=== PATIENT | male | born 1965 | race Caucasian/White ===

== ENCOUNTER 2022-03-18 10:24 | Outpatient (CLI) | payer OTHER, SELFPAY ==
[2022-03-18 13:56] LABS: Chloride* 104 mmol/L (96-114)
[2022-03-18 13:57] LABS: Potassium* 4.4 mmol/L (3.6-5.1); Sodium* 137 mmol/L (135-149)
[2022-03-18 13:59] LABS: Aspartate Amino Transferase* 230 U/L (12-35); Bilirubin Total* 1.1 mg/dL (0.1-1.5); Blood Urea Nitrogen* 10 mg/dL (7-30); Carbon Dioxide* 26 mmol/L (20-32); Cholesterol* 259 mg/dL (90-199); Creatinine* 0.7 mg/dL (0.5-1.5); Estimated Glomerular Filt Rate 110 ml/min; Total Protein* 7.1 g/dL (6.0-8.3)
[2022-03-18 14:00] LABS: Alanine Aminotransferase* 205 U/L (4-50); Alkaline Phosphatase* 122 U/L (40-150); Calcium* 9.1 mg/dL (8.4-10.6); Glucose* 94 mg/dL (60-115); HDL Cholesterol* 50 mg/dL (>=40); Triglycerides* 165 mg/dL (40-149)
[2022-03-18 14:30] LABS: PSA Screen* 0.49 ng/mL (0.10-4.00)
[2022-03-18 15:34] LABS: LDL Cholesterol Calculated 176 mg/dL (<100)
== END 2022-03-18 10:25 | disposition home or self-care (01) ==
LOC: LKVREF 10:24
PROVIDERS: PCP Emergency Medicine; Visit Provider Emergency Medicine
DX: Z00.00 Encounter for general adult medical examination without abnormal findings (principal); E03.9 Hypothyroidism, unspecified; E78.00 Pure hypercholesterolemia, unspecified; I10 Essential (primary) hypertension; F10.10 Alcohol abuse, uncomplicated; Z12.5 Encounter for screening for malignant neoplasm of prostate
CPT/HCPCS: 80053; 80061; 84153; 84443

== ENCOUNTER 2022-11-20 08:02 | Outpatient (CLI) | payer OTHER, SELFPAY ==
[2022-11-20 17:18] LABS: Lab Add On Test New Spec Needed
== END 2022-11-20 08:03 | disposition home or self-care (01) ==
LOC: LKVREF 16:49
PROVIDERS: PCP Emergency Medicine; Referring Provider Emergency Medicine; Visit Provider Emergency Medicine
DX: R74.01 Elevation of levels of liver transaminase levels (principal); E78.00 Pure hypercholesterolemia, unspecified; D75.89 Other specified diseases of blood and blood-forming organs; I10 Essential (primary) hypertension; E53.8 Deficiency of other specified B group vitamins
CPT/HCPCS: 80048; 80061; 80076; 82607

== ENCOUNTER 2023-05-20 07:58 | Outpatient (CLI) | payer OTHER, SELFPAY | END 2023-05-20 07:59 | disposition home or self-care (01) | LOC: NFLDREF 05-22 14:41 | PROVIDERS: PCP Emergency Medicine; Referring Provider Emergency Medicine; Visit Provider Emergency Medicine | DX: E78.00 Pure hypercholesterolemia, unspecified (principal); E53.8 Deficiency of other specified B group vitamins; D75.89 Other specified diseases of blood and blood-forming organs | CPT/HCPCS: 80061; 82607 ==

== ENCOUNTER 2023-06-03 13:55 | Outpatient (CLI) | payer OTHER, SELFPAY | END 2023-06-03 13:56 | disposition home or self-care (01) | PROVIDERS: PCP Emergency Medicine; Visit Provider Emergency Medicine | DX: N52.9 Male erectile dysfunction, unspecified (principal); R68.82 Decreased libido | CPT/HCPCS: 84403 ==

== ENCOUNTER 2023-07-09 14:28 | Outpatient (CLI) | payer OTHER, SELFPAY | END 2023-07-09 14:29 | disposition home or self-care (01) | LOC: LKVREF 14:29 | PROVIDERS: PCP Emergency Medicine; Visit Provider Emergency Medicine | DX: Z01.818 Encounter for other preprocedural examination (principal); R68.82 Decreased libido; E53.8 Deficiency of other specified B group vitamins | CPT/HCPCS: 80048; 82607 ==

== ENCOUNTER 2023-07-16 06:07 | Day surgery (SDC) | payer OTHER, SELFPAY ==
[2023-07-16] VITALS (11 sets, daily range): BP systolic 131–186; BP diastolic 82–119; PULSE 55–79; RESP 12–20; TEMP 36.2–36.8; O2SAT 97–100; BMI 24.1
[2023-07-16] MEDS: LACTATED RINGERS 1000 ML 1,000 ML 100 ML IV (06:20)
[2023-07-16] MEDS: SODIUM CHLORIDE 0.9 % (FLUSH) 10 ML SYRINGE IVF (06:56)
[2023-07-16] MEDS: CEFAZOLIN 1 GM inj IVP (11:08)
[2023-07-16] MEDS: BUPIVACAINE 0.25% 30 ML INJECTION (11:38)
--- NOTE | 2023-07-16 11:45 | SUR.OPER ---
PATIENT QUESTIONS ANSWERED SATISFACTORILY PREOPERATIVELY. PATIENT BROUGHT TO OR #1 PER CART. Patient positioned supine on OR #1 bed. The perioperative team supported arms bilaterally on arm boards. Final approval of positioning by surgeon.
--- NOTE | 2023-07-16 12:04 | PM.GSPRC ---
Operative Note Pre-op diagnosis: Right inguinal hernia Post-op diagnosis: Same Type of Procedure: Laparoscopic repair of right inguinal hernia with mesh Indications: The patient is a 57-year-old male who noted a right groin bulge. Exam revealed a right inguinal hernia This has become increasingly symptomatic for him and after discussion of options, he would like repair. Procedure Description: After discussing the risks and benefits of the procedure, the patient signed informed consent.? The operative site was marked and the patient was brought to the operating room and placed on the operating table in supine position.? Care was taken to pad the patient's pressure points.?? The patient was then intubated by anesthesia.?? The operative site was then prepped and draped in the usual sterile fashion.? A time-out was then performed. A curvilinear incision was made below the umbilicus. Dissection was carried down to subcutaneous tissue until the anterior rectus fascia was encountered. This was incised off the midline on the right. The rectus muscle fibers were then retracted exposing the posterior fascia. A port with a dissecting balloon was then introduced into the pre-preperitoneal space. This was inflated under direct vision. The balloon was deflated, removed, and a 10 mm working port was placed. The space was insufflated and a 10 mm 30-degree scope was then advanced into the space. Two 5 mm ports were placed in the midline under direct vision. Dissection began on the right side. Clive's ligament and the pubic bone were exposed medially. Following this, dissection was carried out laterally. A small direct as well as an indirect defect were noted. The direct hernia was reduced and then attention was turned to the indirect sac. This was dissected free from the cord structures using a combination of sharp and blunt dissection. A large cord lipoma was also reduced. Once the sac was completely reduced, a piece of Bard 3DMax mesh for the appropriate side was placed into the abdomen. This was positioned with the marker pointed medially. A Tacker was used to attach the mesh medially at Clive's ligament and 1 tack laterally with care to avoid the epigastric vessels and stay above the inguinal ligament. Once this was completed the sac was placed on top of the mesh and the preperitoneal space desufflated under direct vision to ensure the mesh laid flat. 10 mL of 0.5% Marcaine were instilled into the preperitoneal space through a port. The ports were removed. The fascia from the infraumbilical port was closed with 0 Vicryl. The skin incisions were closed with absorbable subcuticular suture. Sterile dressings were then applied. The scrotum was examined to ensure that both testicles were down. Instrument sponge and needle counts were correct at the end of the case. The patient was then woken and transported to the recovery area in stable condition. ? The patient tolerated the procedure well. Findings: Small direct and indirect inguinal hernias with a large cord lipoma. Implants: Bard 3DMax inguinal hernia mesh Anesthesia: GETA Surgeon: Bozena Rose MD Estimated blood loss (mL): 5 Condition: stable Disposition: PACU Date of procedure: 07/16/23
--- NOTE | 2023-07-16 12:21 | W.ANESCHARGE ---
Anesthesia Charges Start Date/Time Anesthesia Start Date: 07/16/23 Anesthesia Start Time: 10:50 Stop Date/Time Anesthesia Stop Date: 07/16/23 Anesthesia Stop Time: 12:15
== END 2023-07-16 13:36 | disposition home or self-care (01) ==
PROVIDERS: PCP Emergency Medicine; Visit Provider Surgery
PROC: (CPT 49650; principal; 2023-07-16 08:45)
DX: K40.90 Unilateral inguinal hernia, without obstruction or gangrene, not specified as recurrent (principal)
CPT/HCPCS: 49650; 00830; C1781; J0330; J0665; J0690; J2250; J2704; J3010; J3490; J7120

== ENCOUNTER 2024-06-03 08:04 | Outpatient (CLI) | payer BC, SELFPAY ==
--- OUTSIDE RECORDS SUMMARY | 2024-06-03 14:29 | XMS_ITS | Clinical Summary ---
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
== END 2024-06-03 08:05 | disposition home or self-care (01) ==
LOC: NFLDREF 14:27
PROVIDERS: PCP Emergency Medicine; Referring Provider Emergency Medicine; Visit Provider Emergency Medicine
DX: E78.00 Pure hypercholesterolemia, unspecified (principal); I10 Essential (primary) hypertension; E03.9 Hypothyroidism, unspecified; E53.8 Deficiency of other specified B group vitamins; Z12.5 Encounter for screening for malignant neoplasm of prostate
CPT/HCPCS: 80053; 80061; 82607; G0103